=== PATIENT | female | born 1950 | race Caucasian/White ===

== ENCOUNTER 2017-11-28 12:23 | Emergency (ER) | payer MEDICARE ==
[~2017-11-28] VITALS: Ht 154.9 cm; Wt 84.8 kg
[~2017-11-28 12:23] MED LIST: ALBU90OI INH; DULO30 PO; ENOX30I SC; ENOX40I SC; GABA300 PO; LEVSOD150 PO; LISI20 PO; LOVA40 PO; MELO7.5 PO; METO50ER PO; MONT10T PO; NORT10 PO; Norco 10-325 T1 EACH PO; Norflex100 MG; OXYACE5T PO; Tylenol325 MG PO; ZESTORETIC 20-121 EA; Zanaflex2 M1 PO
[2017-11-28 13:04] LABS: BASOPHILS ABSOLUTE AUTO 0.02 K/mm3 (0.00-0.23); BASOPHILS PERCENT AUTO 0 % (0-2); EOSINOPHILS ABSOLUTE AUTO 0.11 K/mm3 (0.00-0.68); EOSINOPHILS PERCENT AUTO 1 % (0-6); Hematocrit 41.8 % (33.0-51.0); Hemoglobin 13.3 g/dL (11.5-16.0); IMMATURE GRAN ABSOLUTE AUTO 0.03 K/mm3 (0.00-0.10); IMMATURE GRAN PERCENT AUTO 0 % (0-1); LYMPHOCYTES ABSOLUTE AUTO 2.56 K/mm3 (0.84-5.20); LYMPHOCYTES PERCENT AUTO 32 % (21-46); MONOCYTES ABSOLUTE AUTO 0.53 K/mm3 (0.16-1.47); MONOCYTES PERCENT AUTO 7 % (4-13); Mean Corpuscular HGB 28.1 pg (26.0-34.0); Mean Corpuscular HGB Conc 31.8 g/dL (31.5-36.5); Mean Corpuscular Volume 88 fL (80-100); NEUTROPHILS ABSOLUTE AUTO 4.74 K/mm3 (1.96-9.15); NEUTROPHILS PERCENT AUTO 59 % (41-73); Platelet Count 386 K/mm3 (150-400); RDW Coefficient Variation 13.4 % (11.7-14.2); RDW Standard Deviation 43.5 fL (35.1-46.3); Red Blood Cell Count 4.74 M/mm3 (3.80-5.20); White Blood Cell Count 7.99 K/mm3 (4.00-11.30)
[2017-11-28 13:21] LABS: Alanine Aminotransfer (ALT/SGP 28 U/L (12-78); Albumin, Blood 3.4 g/dL (3.4-5.0); Albumin/Globulin Ratio 0.8 (0.8-1.8); Alk Phos 115 U/L (50-136); Anion Gap 5 mmol/L (6-16); Aspartate Aminotrans (AST/SGOT 22 U/L (12-37); Bilirubin, Total 0.6 mg/dL (0.1-1.0); Blood Urea Nitrogen 8 mg/dL (8-24); Bun/Creatinine Ratio 14.3 (12.0-20.0); CO2, Blood 30 mmol/L (21-32); Calcium, Blood 8.7 mg/dL (8.5-10.1); Chloride, Blood 102 mmol/L (98-108); Creatinine, Blood 0.56 mg/dL (0.40-1.00); Globulin, Blood 4.5 g/dL (2.2-4.0); Glomerular Filtration Rate >60 (60-); Glucose, Blood 100 mg/dL (70-99); Potassium, Blood 3.9 mmol/L (3.5-5.5); Sodium, Blood 137 mmol/L (136-145); Total Protein, Blood 7.9 g/dL (6.4-8.2)
[2017-11-28] MEDS ORDERED: PREG75 PO (14:37)
[2017-11-28] MEDS ORDERED: Advair Hfa 230-12 GM (14:37)
[2017-11-28] MEDS ORDERED: DULO60 (14:37)
[2017-11-28] MEDS ORDERED: LEVSOD137 PO (14:39)
[2017-11-28] MEDS ORDERED: CHOL10002 PO (14:39)
[2017-11-28] MEDS ORDERED: TIZANIDINE HCL2 MG PO (14:40)
[2017-11-28] MEDS ORDERED: LISI20 PO (14:40)
[2017-11-28] MEDS ORDERED: ESTR2 PO (14:40)
[2017-11-28] MEDS ORDERED: FOLI400 PO (14:41)
[2017-11-28] MEDS ORDERED: Lovastatin20 MG PO (14:41)
== END 2017-11-28 16:05 | disposition home or self-care (01) ==
LOC: ER 12:23
PROVIDERS: Psychiatry & Neurology Psychiatry
DX: K80.20 Calculus of gallbladder without cholecystitis without obstruction (principal); R10.12 Left upper quadrant pain; Z88.0 Allergy status to penicillin; Z88.2 Allergy status to sulfonamides; Z88.5 Allergy status to narcotic agent; Z88.6 Allergy status to analgesic agent; Z91.038 Other insect allergy status; Z88.4 Allergy status to anesthetic agent; Z88.8 Allergy status to other drugs, medicaments and biological substances; Z79.899 Other long term (current) drug therapy; Z87.891 Personal history of nicotine dependence
CPT/HCPCS: 36415; 76705; 80053; 83690; 85025; 99283

== ENCOUNTER 2017-11-29 10:34 | Observation (INO) | payer MEDICARE, SELFPAY ==
[~2017-11-29] VITALS: Ht 154.9 cm; Wt 84.1 kg
[~2017-11-29 10:34] MED LIST changes: +Advair Hfa 230-12 GM; +CHOL10002 PO; +DULO60; +ESTR2 PO; +FOLI400 PO; +LEVSOD137 PO; +Lovastatin20 MG PO; +PREG75 PO; +TIZANIDINE HCL2 MG PO
[2017-11-29 12:02] LABS: BASOPHILS ABSOLUTE AUTO 0.03 K/mm3 (0.00-0.23); BASOPHILS PERCENT AUTO 0 % (0-2); EOSINOPHILS ABSOLUTE AUTO 0.09 K/mm3 (0.00-0.68); EOSINOPHILS PERCENT AUTO 1 % (0-6); Hematocrit 41.7 % (33.0-51.0); Hemoglobin 13.5 g/dL (11.5-16.0); IMMATURE GRAN ABSOLUTE AUTO 0.02 K/mm3 (0.00-0.10); IMMATURE GRAN PERCENT AUTO 0 % (0-1); LYMPHOCYTES ABSOLUTE AUTO 2.46 K/mm3 (0.84-5.20); LYMPHOCYTES PERCENT AUTO 31 % (21-46); MONOCYTES ABSOLUTE AUTO 0.52 K/mm3 (0.16-1.47); MONOCYTES PERCENT AUTO 7 % (4-13); Mean Corpuscular HGB 28.6 pg (26.0-34.0); Mean Corpuscular HGB Conc 32.4 g/dL (31.5-36.5); Mean Corpuscular Volume 88 fL (80-100); Mean Platelet Volume 10.1 fL (9.1-12.4); NEUTROPHILS ABSOLUTE AUTO 4.77 K/mm3 (1.96-9.15); NEUTROPHILS PERCENT AUTO 60 % (41-73); Platelet Count 363 K/mm3 (150-400); RDW Coefficient Variation 13.3 % (11.7-14.2); RDW Standard Deviation 43.5 fL (35.1-46.3); Red Blood Cell Count 4.72 M/mm3 (3.80-5.20); White Blood Cell Count 7.89 K/mm3 (4.00-11.30)
[2017-11-29 12:28] LABS: Alanine Aminotransfer (ALT/SGP 30 U/L (12-78); Albumin, Blood 3.3 g/dL (3.4-5.0); Albumin/Globulin Ratio 0.7 (0.8-1.8); Alk Phos 112 U/L (50-136); Anion Gap 7 mmol/L (6-16); Aspartate Aminotrans (AST/SGOT 24 U/L (12-37); Bilirubin, Total 0.6 mg/dL (0.1-1.0); Blood Urea Nitrogen 9 mg/dL (8-24); Bun/Creatinine Ratio 15.6 (12.0-20.0); CO2, Blood 29 mmol/L (21-32); Calcium, Blood 8.7 mg/dL (8.5-10.1); Chloride, Blood 102 mmol/L (98-108); Creatinine, Blood 0.58 mg/dL (0.40-1.00); Globulin, Blood 4.5 g/dL (2.2-4.0); Glomerular Filtration Rate >60 (60-); Glucose, Blood 96 mg/dL (70-99); Potassium, Blood 4.2 mmol/L (3.5-5.5); Sodium, Blood 138 mmol/L (136-145); Total Protein, Blood 7.8 g/dL (6.4-8.2)
[2017-11-29 16:10] LABS: Source, Urine Clean Catch
[2017-11-29 16:21] LABS: Appearance, Urine Clear (Clear); Bilirubin, Urine Neg (Neg); Blood, Urine 1+ (Neg); Color, Urine Yellow (P-Yellow); Glucose Qualitative, Urine Neg (Neg); Ketones, Urine Neg (Neg); Leukocyte Esterase, Urine Neg (Neg); Nitrite, Urine Neg (Neg); Protein, Urine Neg (Neg); Urobilinogen, Urine NORM (Normal)
[2017-11-29 16:53] LABS: White Blood Cells, Urine 0-2 /hpf (0-5)
[2017-11-29 16:54] LABS: Bacteria Few /hpf; Squamous Epithelial Cells Few /hpf (Few)
[2017-11-30 06:14] LABS: BASOPHILS ABSOLUTE AUTO 0.02 K/mm3 (0.00-0.23); BASOPHILS PERCENT AUTO 0 % (0-2); EOSINOPHILS ABSOLUTE AUTO 0.08 K/mm3 (0.00-0.68); EOSINOPHILS PERCENT AUTO 1 % (0-6); Hematocrit 37.7 % (33.0-51.0); Hemoglobin 11.9 g/dL (11.5-16.0); IMMATURE GRAN ABSOLUTE AUTO 0.03 K/mm3 (0.00-0.10); IMMATURE GRAN PERCENT AUTO 0 % (0-1); LYMPHOCYTES ABSOLUTE AUTO 2.18 K/mm3 (0.84-5.20); LYMPHOCYTES PERCENT AUTO 30 % (21-46); MONOCYTES ABSOLUTE AUTO 0.51 K/mm3 (0.16-1.47); MONOCYTES PERCENT AUTO 7 % (4-13); Mean Corpuscular HGB 28.7 pg (26.0-34.0); Mean Corpuscular HGB Conc 31.6 g/dL (31.5-36.5); Mean Platelet Volume 10.2 fL (9.1-12.4); NEUTROPHILS ABSOLUTE AUTO 4.48 K/mm3 (1.96-9.15); NEUTROPHILS PERCENT AUTO 61 % (41-73); Platelet Count 315 K/mm3 (150-400); RDW Coefficient Variation 13.5 % (11.7-14.2); RDW Standard Deviation 45.1 fL (35.1-46.3); Red Blood Cell Count 4.15 M/mm3 (3.80-5.20)
[2017-11-30 06:15] LABS: Mean Corpuscular Volume 91 fL (80-100)
[2017-11-30 06:37] LABS: Alanine Aminotransfer (ALT/SGP 27 U/L (12-78); Albumin, Blood 2.8 g/dL (3.4-5.0); Albumin/Globulin Ratio 0.8 (0.8-1.8); Alk Phos 97 U/L (50-136); Anion Gap 4 mmol/L (6-16); Aspartate Aminotrans (AST/SGOT 26 U/L (12-37); Bilirubin, Total 0.5 mg/dL (0.1-1.0); Blood Urea Nitrogen 8 mg/dL (8-24); CO2, Blood 29 mmol/L (21-32); Calcium, Blood 7.7 mg/dL (8.5-10.1); Chloride, Blood 106 mmol/L (98-108); Creatinine, Blood 0.53 mg/dL (0.40-1.00); Globulin, Blood 3.6 g/dL (2.2-4.0); Glomerular Filtration Rate >60 (60-); Glucose, Blood 96 mg/dL (70-99); Potassium, Blood 3.9 mmol/L (3.5-5.5); Sodium, Blood 139 mmol/L (136-145); Total Protein, Blood 6.4 g/dL (6.4-8.2)
[2017-12-01] MEDS ORDERED: HYDR1TAB94 PO (11:36)
== END 2017-12-01 13:45 | disposition home or self-care (01) ==
LOC: ER 10:34 → SURS 10:35 → ER 15:24 → SURS 15:24
PROVIDERS: Emergency Medicine; Internal Medicine
PROC: 0FT44ZZ Resection of Gallbladder, Percutaneous Endoscopic Approach (ICD-10-PCS; principal; 2017-11-29)
PROC: BF03YZZ Plain Radiography of Gallbladder and Bile Ducts using Other Contrast (ICD-10-PCS; 2017-11-29)
DX: K80.12 Calculus of gallbladder with acute and chronic cholecystitis without obstruction (principal); I10 Essential (primary) hypertension; M79.7 Fibromyalgia; E03.9 Hypothyroidism, unspecified; G62.9 Polyneuropathy, unspecified; M32.9 Systemic lupus erythematosus, unspecified; Z96.653 Presence of artificial knee joint, bilateral; Z87.11 Personal history of peptic ulcer disease; Z86.010 Personal history of colon polyps; Z87.891 Personal history of nicotine dependence; Z88.0 Allergy status to penicillin; Z88.2 Allergy status to sulfonamides; Z88.5 Allergy status to narcotic agent; Z88.8 Allergy status to other drugs, medicaments and biological substances; Z88.4 Allergy status to anesthetic agent; Z91.030 Bee allergy status; Z79.899 Other long term (current) drug therapy; Z98.890 Other specified postprocedural states
CPT/HCPCS: 36415; 74300; 78226; 80053; 81001; 82947; 83690; 85025; 88304; 93005; 93010; 94640; 94760; 96372; 99285; A9537; C1729; C9113; G0378; J1100; J1170; J1650; J1956; J2250; J2405; J2710; J3010; J7030; J7120; Q0163

== ENCOUNTER → 2018-12-22 | Outpatient (CLI) | payer MEDICARE ==
[~2018-12-22] MED LIST changes: +HYDR1TAB94 PO
== END | disposition home or self-care (01) ==
LOC: LAB EV 13:03 → LAB SHORT 13:03
DX: N39.0 Urinary tract infection, site not specified (principal)
CPT/HCPCS: 87077; 87086; 87186

== ENCOUNTER → 2018-12-31 | Outpatient (CLI) | payer MEDICARE | END | disposition home or self-care (01) | LOC: LAB EV 13:26 → LAB SHORT 13:26 | DX: N39.0 Urinary tract infection, site not specified (principal) | CPT/HCPCS: 87086 ==

== ENCOUNTER → 2019-02-01 | Outpatient (CLI) | payer MEDICARE | END | disposition home or self-care (01) | LOC: LAB 17:01 → LAB SHORT 17:01 | DX: R35.0 Frequency of micturition (principal) | CPT/HCPCS: 87086 ==

== ENCOUNTER → 2019-02-04 | Outpatient (CLI) | payer MEDICARE ==
[2019-02-04 17:20] LABS: Source, Urine Clean Catch
[2019-02-04 18:48] LABS: Bacteria Few /hpf; Mucus Mod (0-Heavy); Red Blood Cells, Urine 0-2 /hpf (0-2); Squamous Epithelial Cells Few /hpf (Few); White Blood Cells, Urine 0-2 /hpf (0-5)
== END ==
LOC: LAB 17:15 → LAB SHORT 17:15
PROVIDERS: Nurse Practitioner Family
DX: R31.9 Hematuria, unspecified (principal)
CPT/HCPCS: 81015

== ENCOUNTER → 2019-04-28 | Outpatient (CLI) | payer MEDICARE | END | disposition home or self-care (01) | LOC: LAB 12:32 → LAB SHORT 12:32 | DX: N39.0 Urinary tract infection, site not specified (principal); R39.15 Urgency of urination | CPT/HCPCS: 87086 ==

== ENCOUNTER 2020-03-21 11:51 | Day surgery (SDC) | payer MEDICARE, OTHER ==
[~2020-03-21] VITALS: Ht 154.9 cm; Wt 81.4 kg
[2020-03-21] MEDS ORDERED: CALCIUM CIT 311 EACH (12:38)
[2020-03-21] MEDS ORDERED: ALLEGRA ALLERG180 MG PO (12:38)
[2020-03-21] MEDS ORDERED: OXYB5 PO (12:39)
[2020-03-21] MEDS ORDERED: LOSARTAN-HCTZ1 EACH PO (12:39)
--- NOTE | 2020-03-21 12:42 | NUR ---
03/21/20 1242 Ilda Mello CALL LIGHT WITHIN REACH
== END 2020-03-21 13:44 | disposition home or self-care (01) ==
LOC: ORSCSDS 11:51
PROVIDERS: Anesthesiology
PROC: 3E0R33Z Introduction of Anti-inflammatory into Spinal Canal, Percutaneous Approach (ICD-10-PCS; principal; 2020-03-21 13:15)
DX: M50.122 Cervical disc disorder at C5-C6 level with radiculopathy (principal); M50.322 Other cervical disc degeneration at C5-C6 level; I10 Essential (primary) hypertension; F32.9 Major depressive disorder, single episode, unspecified; E03.9 Hypothyroidism, unspecified; E66.01 Morbid (severe) obesity due to excess calories; Z68.34 Body mass index [BMI] 34.0-34.9, adult; Z79.899 Other long term (current) drug therapy
CPT/HCPCS: J1040; J2250; J3010; J7040

== ENCOUNTER 2020-03-26 08:47 | Day surgery (SDC) | payer MEDICARE, OTHER ==
[~2020-03-26] VITALS: Ht 154.9 cm; Wt 80.2 kg
[~2020-03-26 08:47] MED LIST changes: +ALLEGRA ALLERG180 MG PO; +CALCIUM CIT 311 EACH; +LOSARTAN-HCTZ1 EACH PO; +OXYB5 PO
[2020-03-26] MEDS ORDERED: FLUT.05NI (09:38)
[2020-03-26] MEDS ORDERED: LOSARTAN-HCTZ1 EAC6 PO (09:39)
[2020-03-26] MEDS ORDERED: Oxybutynin Chlo15 MG PO (09:40)
[2020-03-26] MEDS ORDERED: Ventolin/Prove6.7 GM INH (09:41)
--- NOTE | 2020-03-26 12:12 | NUR ---
03/26/20 1212 Carlitos Ortega 10 MLS OF BUPIVACAINE 1.25% WITH EPI 1:200,[address] MEDEROS AT [facility].
--- NOTE | 2020-03-26 13:15 | NUR ---
03/26/20 1315 Candie Delaney PT BECOMING APNIC WITH DECREASE IN O2 SATS FOLLOWING ADMIN OF IV PAIN MEDICATION. PT IS SLEEPY, DROWSY BUT RESPONDS TO VERBAL PROMPTS. RATES PAIN 4 OUT OF 10. O2 AT 2LITERS PER N/C FOR O2 SAT SUPPORT. O2 SAT AT 100%. TOLORATING PO INTAKE. AT SIDE.
== END 2020-03-26 13:44 | disposition home or self-care (01) ==
LOC: ORSCSDS 08:47
PROVIDERS: Orthopaedic Surgery
PROC: 01N40ZZ Release Ulnar Nerve, Open Approach (ICD-10-PCS; principal; 2020-03-26 10:15)
DX: G56.21 Lesion of ulnar nerve, right upper limb (principal); E03.9 Hypothyroidism, unspecified; M79.7 Fibromyalgia; M32.9 Systemic lupus erythematosus, unspecified; Z79.899 Other long term (current) drug therapy; Z87.891 Personal history of nicotine dependence
CPT/HCPCS: J0171; J2250; J2765; J3010; J3370; J7120

== ENCOUNTER 2020-04-23 10:57 | Day surgery (SDC) | payer MEDICARE, OTHER ==
[~2020-04-23] VITALS: Ht 154.9 cm; Wt 82.5 kg
[~2020-04-23 10:57] MED LIST changes: +FLUT.05NI; +LOSARTAN-HCTZ1 EAC6 PO; +Oxybutynin Chlo15 MG PO; +Ventolin/Prove6.7 GM INH
--- NOTE | 2020-04-23 11:41 | NUR ---
04/23/20 1141 Zulma Fernando PRE OP TEACHING DONE.
--- NOTE | 2020-04-23 14:40 | NUR ---
04/23/20 1440 Aida Orosco PT HAD MULTIPLE EPISODES OF DESATURATION INTO THE LOW 80s AFTER 25 MCG IV FENTANYL GIVEN. SATURATIONS BACK UP TO LOW TO MID 90s WHEN INSTRUCTED TO DEEP BREATH. OXYGEN APPLIED VIA NC AT 4L/MIN. OXYGEN SATURATIONS AT 100% ON 4L. TITRATED TO 2L VIA NC.
== END 2020-04-23 15:30 | disposition home or self-care (01) ==
LOC: ORSCSDS 10:57
PROVIDERS: Orthopaedic Surgery
PROC: 01X40Z4 Transfer Ulnar Nerve to Ulnar Nerve, Open Approach (ICD-10-PCS; principal; 2020-04-23 12:15)
DX: G56.22 Lesion of ulnar nerve, left upper limb (principal); I10 Essential (primary) hypertension; E03.9 Hypothyroidism, unspecified; M79.7 Fibromyalgia; Z79.899 Other long term (current) drug therapy; E66.9 Obesity, unspecified; Z68.34 Body mass index [BMI] 34.0-34.9, adult
CPT/HCPCS: A9270-GY; J0171; J1100; J2250; J2370; J2405; J2704; J2765; J3010; J3370; J7120

== ENCOUNTER → 2020-05-03 | Outpatient (CLI) | payer MEDICARE, OTHER | LOC: LAB SHORT 14:41 → OLS 14:41 | DX: L57.0 Actinic keratosis (principal); L40.9 Psoriasis, unspecified; L90.5 Scar conditions and fibrosis of skin | CPT/HCPCS: 88305 ==

== ENCOUNTER 2020-05-24 10:17 | Day surgery (SDC) | payer MEDICARE, OTHER ==
[~2020-05-24] VITALS: Ht 154.9 cm; Wt 83.6 kg
--- NOTE | 2020-05-24 11:55 | NUR ---
05/24/20 1155 Addis Almanza ISOVUE M-200 PATIENT ON CHAIR, HEAD ON PILLOW
== END 2020-05-24 12:10 | disposition home or self-care (01) ==
LOC: ORSCSDS 10:17
PROVIDERS: Anesthesiology
PROC: 3E0R33Z Introduction of Anti-inflammatory into Spinal Canal, Percutaneous Approach (ICD-10-PCS; principal; 2020-05-24 11:15)
DX: M50.122 Cervical disc disorder at C5-C6 level with radiculopathy (principal); E03.9 Hypothyroidism, unspecified; I10 Essential (primary) hypertension; E66.9 Obesity, unspecified; Z68.34 Body mass index [BMI] 34.0-34.9, adult; Z79.899 Other long term (current) drug therapy
CPT/HCPCS: J1040; J1100; J2250

== ENCOUNTER 2020-10-16 12:13 | Emergency (ER) | payer MEDICARE, OTHER ==
[~2020-10-16] VITALS: Ht 170.2 cm; Wt 90.7 kg
[2020-10-16 12:52] LABS: BASOPHILS ABSOLUTE AUTO 0.04 K/mm3 (0.00-0.23); BASOPHILS PERCENT AUTO 0 % (0-2); EOSINOPHILS ABSOLUTE AUTO 0.21 K/mm3 (0.00-0.68); EOSINOPHILS PERCENT AUTO 2 % (0-6); Hematocrit 44.9 % (33.0-51.0); Hemoglobin 14.8 g/dL (11.5-16.0); IMMATURE GRAN PERCENT AUTO 1 % (0-1); LYMPHOCYTES ABSOLUTE AUTO 2.79 K/mm3 (0.84-5.20); LYMPHOCYTES PERCENT AUTO 28 % (21-46); MONOCYTES ABSOLUTE AUTO 0.73 K/mm3 (0.16-1.47); MONOCYTES PERCENT AUTO 7 % (4-13); Mean Corpuscular HGB 29.9 pg (26.0-34.0); Mean Corpuscular Volume 91 fL (80-100); Mean Platelet Volume 10.3 fL (9.1-12.4); NEUTROPHILS ABSOLUTE AUTO 6.06 K/mm3 (1.96-9.15); NEUTROPHILS PERCENT AUTO 61 % (41-73); Platelet Count 392 K/mm3 (150-400); RDW Coefficient Variation 13.2 % (11.7-14.2); RDW Standard Deviation 44.1 fL (35.1-46.3); Red Blood Cell Count 4.95 M/mm3 (3.80-5.20); White Blood Cell Count 9.93 K/mm3 (4.00-11.30)
[2020-10-16 13:10] LABS: Alanine Aminotransfer (ALT/SGP 45 U/L (12-78); Albumin, Blood 3.6 g/dL (3.4-5.0); Albumin/Globulin Ratio 0.8 (0.8-1.8); Alk Phos 98 U/L (50-136); Anion Gap 4 mmol/L (6-16); Aspartate Aminotrans (AST/SGOT 26 U/L (12-37); Bilirubin, Total 0.4 mg/dL (0.1-1.0); Blood Urea Nitrogen 10 mg/dL (8-24); Bun/Creatinine Ratio 17.5 (12.0-20.0); CO2, Blood 33 mmol/L (21-32); Calcium, Blood 9.2 mg/dL (8.5-10.1); Chloride, Blood 98 mmol/L (98-108); Creatinine, Blood 0.57 mg/dL (0.40-1.00); Globulin, Blood 4.8 g/dL (2.2-4.0); Glomerular Filtration Rate >60 (60-); Glucose, Blood 95 mg/dL (70-99); Potassium, Blood 3.5 mmol/L (3.5-5.5); Sodium, Blood 135 mmol/L (136-145); Total Protein, Blood 8.4 g/dL (6.4-8.2); Troponin I <0.015 ng/mL (0.000-0.040)
== END 2020-10-16 16:49 | disposition home or self-care (01) ==
LOC: ER 12:13
PROVIDERS: Emergency Medicine
DX: R53.81 Other malaise (principal); R53.83 Other fatigue; R06.00 Dyspnea, unspecified; R05 Cough; I10 Essential (primary) hypertension; E03.9 Hypothyroidism, unspecified; Z20.822 Contact with and (suspected) exposure to COVID-19; Z88.0 Allergy status to penicillin; Z88.2 Allergy status to sulfonamides; Z91.030 Bee allergy status
CPT/HCPCS: 36415; 71045; 80053; 84484; 85025; 93005; 93010; 99283-25

== ENCOUNTER → 2020-11-05 | Outpatient (CLI) | payer MEDICARE, OTHER ==
[2020-11-05 11:50] LABS: Source, Urine Clean Catch
[2020-11-05 14:38] LABS: Appearance, Urine Clear (Clear); Bilirubin, Urine Neg (Neg); Blood, Urine 2+ (Neg); Color, Urine Yellow (P-Yellow); Glucose Qualitative, Urine Neg (Neg); Ketones, Urine Neg (Neg); Leukocyte Esterase, Urine Neg (Neg); Nitrite, Urine Neg (Neg); Protein, Urine Neg (Neg); Urobilinogen, Urine NORM (Normal); pH, Urine 6.5 (5.0-8.0)
[2020-11-05 15:01] LABS: Bacteria Few /hpf; Squamous Epithelial Cells Few /hpf (Few); White Blood Cells, Urine 0-2 /hpf (0-5)
== END ==
LOC: LAB 11:43 → LAB SHORT 11:43
PROVIDERS: Nurse Practitioner Family
DX: R10.30 Lower abdominal pain, unspecified (principal); R82.998 Other abnormal findings in urine
CPT/HCPCS: 81001